=== PATIENT | female | born 1985 | race Hispanic/Latino ===

== ENCOUNTER 2017-12-05 15:05 | Emergency (ER) | payer SELFPAY | END 2017-12-05 15:43 | disposition home or self-care (01) | LOC: EDH 15:05 | DX: J11.1 Influenza due to unidentified influenza virus with other respiratory manifestations (principal) ==

== ENCOUNTER 2017-12-18 18:59 | Emergency (ER) | payer SELFPAY ==
[2017-12-18 19:34] LABS: BASOPHILS % (AUTO) 0.4 % (0.0-5.0); EOSINOPHILS % (AUTO) 0.4 % (0.0-8.0); HEMATOCRIT 41.7 % (36-48); LYMPHOCYTES % (AUTO) 9.1 % (21.0-51.0); MEAN CORPUSCULAR HEMOGLOBIN 27.7 pg (27.0-33.0); MEAN CORPUSCULAR VOLUME 83.8 fL (79-99); MONOCYTES % (AUTO) 3.9 % (3.0-13.0); NEUTROPHILS % (AUTO) 86.2 % (40.0-77.0); PLATELET COUNT (AUTO) 327 K/uL (130-400); RED BLOOD CELL COUNT(AUTO) 4.98 MIL/uL (4.00-5.50); RED CELL DISTRIBUTION WIDTH 14.2 % (11.0-15.5); WHITE BLOOD COUNT (AUTO) 15.7 K/uL (4.8-10.8)
[2017-12-18] MEDS ORDERED: SODIUM CHLORIDE 0.9% 1000ML 1,000 ML IV ONE (19:41)
[2017-12-18] MEDS ORDERED: ONDANSETRON HCL 4 MG/2 ML VIAL ONE ×2 (19:41→21:45)
[2017-12-18 19:42] LABS: CREATININE 0.6 mg/dL (0.5-1.5)
[2017-12-18 19:44] LABS: RAPID GROUP A STREP NEGATIVE (NEGATIVE)
[2017-12-18 20:09] LABS: APPEARANCE,URINE Clear (CLEAR); BILIRUBIN,URINE Negative (NEGATIVE); COLOR,URINE Yellow (YELLOW); GLUCOSE, URINE (UA) Negative (NEGATIVE); KETONES,URINE Trace mg/dL (NEGATIVE); LEUKOCYTE ESTERASE ,URINE Negative (NEGATIVE); NITRATE,URINE Negative (NEGATIVE); OCCULT BLOOD,URINE Moderate (NEGATIVE); PH,URINE 6.5 (5.0-8.0); PROTEIN,URINE Negative (NEGATIVE)
[2017-12-18 20:11] LABS: HCG,QUAL RESULT NEGATIVE (NEGATIVE)
[2017-12-18 20:19] LABS: WBC,URINE 0-1 /HPF (0-1)
[2017-12-18 20:20] LABS: BACTERIA,URINE Few /HPF (None Seen); SQUAMOUS EPITHELIAL CELL,UR Rare /LPF (0-2)
[2017-12-18] MEDS ORDERED: CEFTRIAXONE SODIUM 1 GM ONE (21:01)
[2017-12-18] MEDS ORDERED: BENZONATATE 100 MG CAPSULE PO ONE (21:01)
== END 2017-12-18 22:07 | disposition home or self-care (01) ==
LOC: EDH 18:59
DX: J20.9 Acute bronchitis, unspecified (principal); R11.2 Nausea with vomiting, unspecified
CPT/HCPCS: 36415; 71045; 80048; 81001; 81025; 85025; 87804 ×2; 87880; 96361; 96374; 96375; 96376; 99285; J0696; J2405 ×2; J7030

== ENCOUNTER 2019-01-05 08:01 | Emergency (ER) | payer SELFPAY ==
[2019-01-05 09:02] LABS: CREATININE 0.7 mg/dL (0.5-1.5); POTASSIUM 4.5 mmol/L (3.5-5.1)
[2019-01-05 09:07] LABS: ALBUMIN 3.6 g/dL (3.5-5.0); BILIRUBIN,TOTAL 0.3 mg/dL (0.2-1.0); TOTAL PROTEIN, SERUM 7.5 g/dL (6.0-8.3)
[2019-01-05 09:09] LABS: RAPID GROUP A STREP NEGATIVE (NEGATIVE)
[2019-01-05 09:19] LABS: APPEARANCE,URINE Clear (CLEAR); BILIRUBIN,URINE Negative (NEGATIVE); COLOR,URINE Yellow (YELLOW); GLUCOSE, URINE (UA) Negative (NEGATIVE); KETONES,URINE Negative (NEGATIVE); LEUKOCYTE ESTERASE ,URINE Negative (NEGATIVE); NITRATE,URINE Negative (NEGATIVE); OCCULT BLOOD,URINE Negative (NEGATIVE); PH,URINE 5.5 (5.0-8.0); PROTEIN,URINE Negative (NEGATIVE); UROBILINOGEN,URINE 0.2 mg/dL (0.2-1.0)
[2019-01-05 09:20] LABS: HEMATOCRIT 45.1 % (36-48); MEAN CORPUSCULAR HEMOGLOBIN 27.7 pg (27.0-33.0); MEAN CORPUSCULAR HGB CONC 32.3 g/dL (32.0-36.0); MEAN CORPUSCULAR VOLUME 85.8 fL (79-99); PLATELET COUNT (AUTO) 239 K/uL (130-400); RED BLOOD CELL COUNT(AUTO) 5.26 MIL/uL (4.00-5.50); RED CELL DISTRIBUTION WIDTH 13.8 % (11.0-15.5); WHITE BLOOD COUNT (AUTO) 20.8 K/uL (4.8-10.8)
[2019-01-05 09:26] LABS: HCG,QUAL RESULT NEGATIVE (NEGATIVE)
[2019-01-05] MEDS ORDERED: CEFTRIAXONE SODIUM 1 GM ONE (09:53)
[2019-01-05] MEDS ORDERED: METHYLPREDNISOLONE SOD SUCC 125MG/2ML VIAL ONE (09:53)
[2019-01-05] MEDS ORDERED: LIDOCAINE HCL-MPF 1% 2ML VIAL ONE (09:53)
[2019-01-05 09:58] LABS: BAND NEUTROPHILS % (MANUAL) 5 % (0-2); LYMPHOCYTES % (MANUAL) 8 % (22-44); MAN.DIFF COMMENT-IMPRESSION MANUAL DIFFERENTIAL; MONOCYTES % (MANUAL) 4 % (2-9); SEGMENTED NEUTROPHILS % 83 % (40-70)
[2019-01-05 09:59] LABS: PLATELET MORPHOLOGY COMMENT ADEQUATE
[2019-01-05] MEDS ORDERED: IPRATROPIUM/ALBUTEROL SULFATE 3 ML SOLUTION IH ONE (10:13)
== END 2019-01-05 12:06 | disposition home or self-care (01) ==
LOC: EDH 08:01
DX: J11.00 Influenza due to unidentified influenza virus with unspecified type of pneumonia (principal)
CPT/HCPCS: 36415; 71046; 80053; 81003; 81025; 85025; 87804 ×2; 87880; 94640; 96372 ×2; 99284; J0696; J2930; J3490

== ENCOUNTER 2020-11-17 10:15 | Emergency (ER) | payer OTHER, SELFPAY ==
[2020-11-17 11:13] LABS: CARBON DIOXIDE 28 mmol/L (21-32); CHLORIDE 97 mmol/L (101-111); CREATININE 0.6 mg/dL (0.5-1.5); GLOMERULAR FILTR. RATE CALC 120 mL/min (>60); GLUCOSE,RANDOM 386 mg/dL (70-105); POTASSIUM 4.9 mmol/L (3.5-5.1); SODIUM SERUM 135 mmol/L (136-145); UREA NITROGEN, BLOOD 9 mg/dL (7-18)
[2020-11-17 11:15] LABS: BASOPHILS % (AUTO) 0.2 % (0.0-5.0); EOSINOPHILS % (AUTO) 2.3 % (0.0-8.0); HEMATOCRIT 46.3 % (36-48); LYMPHOCYTES % (AUTO) 19.3 % (21.0-51.0); MEAN CORPUSCULAR HEMOGLOBIN 27.3 pg (27.0-33.0); MEAN CORPUSCULAR HGB CONC 32.2 g/dL (32.0-36.0); MONOCYTES % (AUTO) 5.7 % (3.0-13.0); NEUTROPHILS % (AUTO) 71.8 % (40.0-77.0); PLATELET COUNT (AUTO) 235 K/uL (130-400); RED BLOOD CELL COUNT(AUTO) 5.45 MIL/uL (4.00-5.50); RED CELL DISTRIBUTION WIDTH 13.4 % (11.0-15.5); WHITE BLOOD COUNT (AUTO) 6.1 K/uL (4.8-10.8)
[2020-11-17 11:30] LABS: ALANINE AMINOTRANSFERASE 45 U/L (12-78); ALBUMIN 3.3 g/dL (3.5-5.0); ASPARTATE AMINOTRANSFERASE 38 U/L (10-37); BILIRUBIN,TOTAL 0.4 mg/dL (0.2-1.0); CREATINE KINASE, TOTAL 106 U/L (21-232); LACTATE DEHYDROGENASE 344 U/L (81-234); MYOGLOBIN 20 ng/mL (10-92); TROPONIN I < 0.04 ng/mL (0.00-0.06)
[2020-11-17 11:32] LABS: INR 1.02 (0.85-1.15); PROTHROMBIN TIME 10.9 SEC (9.6-11.6)
[2020-11-17 11:34] LABS: PARTIAL THROMBOPLASTIN TIME 23.8 SEC (26.3-35.5)
[2020-11-17 12:18] LABS: ERYTHROCYTE SEDIMENTATION RATE 5 MM/HR (0-20)
== END 2020-11-17 13:59 | disposition home or self-care (01) ==
LOC: EDH 10:15
DX: U07.1 COVID-19 (principal); J12.82 Pneumonia due to coronavirus disease 2019; E11.65 Type 2 diabetes mellitus with hyperglycemia; I10 Essential (primary) hypertension; E66.01 Morbid (severe) obesity due to excess calories; Z98.890 Other specified postprocedural states; Z68.44 Body mass index [BMI] 60.0-69.9, adult
CPT/HCPCS: 36415; 71045; 80053; 82550; 82728; 83615; 83874; 84484; 85025; 85378; 85610; 85651; 85730; 86140; 86900; 86901; 87040; 93005

== ENCOUNTER 2021-01-06 13:27 | Emergency (ER) | payer OTHER ==
[2021-01-06] MEDS ORDERED: HYDROCODONE/ACETAMINOPHEN 5/325 MG TAB ONE (14:23)
[2021-01-06] MEDS ORDERED: KETOROLAC TROMETHAMINE 30MG/ML ONE (14:23)
[2021-01-06] MEDS ORDERED: PENICILLIN G BENZATHINE LA 1.2 MILUNITS/2 ML SYG ONE (14:25)
== END 2021-01-06 14:53 | disposition home or self-care (01) ==
LOC: EDH 13:27
DX: K04.7 Periapical abscess without sinus (principal); K08.89 Other specified disorders of teeth and supporting structures; E11.9 Type 2 diabetes mellitus without complications; I10 Essential (primary) hypertension
CPT/HCPCS: 96372 ×2; 99284; J0561; J1885

== ENCOUNTER 2021-02-11 11:45 | Emergency (ER) | payer MEDICAID ==
[2021-02-11] MEDS ORDERED: KETOROLAC TROMETHAMINE 30MG/ML ONE (12:53)
[2021-02-11] MEDS ORDERED: HYDROCODONE/ACETAMINOPHEN 5/325 MG TAB ONE (12:53)
== END 2021-02-11 13:12 | disposition home or self-care (01) ==
LOC: EDH 11:45
DX: K03.81 Cracked tooth (principal); K04.7 Periapical abscess without sinus; E11.9 Type 2 diabetes mellitus without complications; I10 Essential (primary) hypertension; Z98.890 Other specified postprocedural states
CPT/HCPCS: 87486; 87797; 96372; 99283; J1885

== ENCOUNTER 2021-02-28 22:06 | Emergency (ER) | payer MEDICAID ==
[2021-02-28] MEDS ORDERED: AMOXICILLIN/POTASSIUM CLAV 875-125 TABLET PO ONE (22:49)
== END 2021-02-28 23:10 | disposition home or self-care (01) ==
LOC: EDH 22:06
DX: G89.18 Other acute postprocedural pain (principal); K08.89 Other specified disorders of teeth and supporting structures; I10 Essential (primary) hypertension; E11.9 Type 2 diabetes mellitus without complications; Z98.890 Other specified postprocedural states; Z98.818 Other dental procedure status

== ENCOUNTER 2022-02-22 19:09 | Emergency (ER) | payer MEDICAID ==
[~2022-02-22] VITALS: Ht 157.5 cm; Wt 147.4 kg
[2022-02-22 20:32] LABS: BASOPHILS % (AUTO) 0.2 % (0.0-5.0); EOSINOPHILS % (AUTO) 0.6 % (0.0-8.0); HEMATOCRIT 46.2 % (36-48); MEAN CORPUSCULAR HEMOGLOBIN 27.5 pg (27.0-33.0); MEAN CORPUSCULAR HGB CONC 32.3 g/dL (32.0-36.0); MEAN CORPUSCULAR VOLUME 85.4 fL (79-99); NEUTROPHILS % (AUTO) 72.5 % (40.0-77.0); PLATELET COUNT (AUTO) 337 K/uL (130-400); RED BLOOD CELL COUNT(AUTO) 5.41 MIL/uL (4.00-5.50); RED CELL DISTRIBUTION WIDTH 13.2 % (11.0-15.5); WHITE BLOOD COUNT (AUTO) 12.1 K/uL (4.8-10.8)
[2022-02-22 20:46] LABS: CREATININE 0.7 mg/dL (0.5-1.5); POTASSIUM 3.9 mmol/L (3.5-5.1)
[2022-02-22 20:51] LABS: ALBUMIN 3.8 g/dL (3.5-5.0); BILIRUBIN,TOTAL 0.4 mg/dL (0.2-1.0); TOTAL PROTEIN, SERUM 8.1 g/dL (6.0-8.3)
[2022-02-22 21:19] LABS: APPEARANCE,URINE Cloudy (CLEAR); BILIRUBIN,URINE Negative (NEGATIVE); COLOR,URINE Yellow (YELLOW); GLUCOSE, URINE (UA) >=1000 mg/dL (NEGATIVE); KETONES,URINE Trace mg/dL (NEGATIVE); LEUKOCYTE ESTERASE ,URINE Trace (NEGATIVE); NITRATE,URINE Negative (NEGATIVE); OCCULT BLOOD,URINE Negative (NEGATIVE); PROTEIN,URINE Negative (NEGATIVE)
[2022-02-22 21:28] LABS: BACTERIA,URINE Moderate /HPF (None Seen); MUCUS,URINE Few LPF (None Seen); SQUAMOUS EPITHELIAL CELL,UR Few /HPF (0-2); YEAST,URINE BUDDING Few /HPF (None Seen)
[2022-02-22] MEDS ORDERED: CEFTRIAXONE 1G VIAL IVP ONE (22:30)
[2022-02-22] MEDS ORDERED: INSULIN HUMULIN R 100 UNIT/ML 3ML IV ONE (22:30)
[2022-02-22] MEDS ORDERED: 0.9%NACL 1000ML 1,000 ML IV SCH (22:30)
[2022-02-22] MEDS ORDERED: LACTULOSE 20 GM/30 ML UDCUP PO ONE (22:30)
[2022-02-22] MEDS ORDERED: MAGNESIUM CITRATE 296 ML SOLUTION PO ONE (22:30)
[2022-02-22] MEDS ORDERED: PIOG30TA10 PO (23:11)
[2022-02-22] MEDS ORDERED: CEPH500B PO (23:11)
[2022-02-22] MEDS ORDERED: METF-444 PO (23:11)
[2022-02-22] MEDS ORDERED: LACT10PA5 PO (23:11)
[2022-02-22] MEDS ORDERED: ONDANSETRON 4MG INJ ONE (23:35)
[2022-02-23] VITALS: BP 152/82
[2022-02-23] MEDS ORDERED: ONDANSETRON 4MG INJ IVP ONE
== END 2022-02-23 00:17 | disposition home or self-care (01) ==
LOC: EDH 19:09
DX: N39.0 Urinary tract infection, site not specified (principal); K57.30 Diverticulosis of large intestine without perforation or abscess without bleeding; E11.9 Type 2 diabetes mellitus without complications; K59.00 Constipation, unspecified; E66.9 Obesity, unspecified; Z68.43 Body mass index [BMI] 50.0-59.9, adult; Z98.890 Other specified postprocedural states
CPT/HCPCS: 36415; 74176; 80053; 81001; 82948 ×2; 83605; 84484; 85025; 87088; 96361; 96374; 96375; 99284; J0696; J1815; J2405; J7030

== ENCOUNTER 2022-05-22 18:33 | Emergency (ER) | payer MEDICAID ==
[~2022-05-22] VITALS: Ht 157.5 cm; Wt 149.7 kg
[~2022-05-22 18:33] MED LIST: CEPH500B PO; LACT10PA5 PO; METF-444 PO; PIOG30TA10 PO
[2022-05-22] MEDS ORDERED: D-ME1POW16 PO (20:26)
[2022-05-22 20:57] VITALS: BP 129/88
== END 2022-05-22 21:02 | disposition home or self-care (01) ==
LOC: EDH 18:33
DX: J06.9 Acute upper respiratory infection, unspecified (principal); E66.01 Morbid (severe) obesity due to excess calories; Z68.44 Body mass index [BMI] 60.0-69.9, adult; Z20.822 Contact with and (suspected) exposure to COVID-19; E11.9 Type 2 diabetes mellitus without complications; Z79.899 Other long term (current) drug therapy; Z79.84 Long term (current) use of oral hypoglycemic drugs; Z98.890 Other specified postprocedural states
CPT/HCPCS: 99283; 87635; 87804 ×2; C9803

== ENCOUNTER 2023-12-07 15:47 | Emergency (ER) | payer MEDICAID, OTHER ==
[~2023-12-07] VITALS: Ht 157.5 cm; Wt 132.4 kg
[~2023-12-07 15:47] MED LIST changes: +D-ME1POW16 PO; +SITA50TA PO
[2023-12-07 20:57] LABS: BASOPHILS # (AUTO) 0.03 K/uL (0.00-0.20); BASOPHILS % (AUTO) 0.2 % (0.0-5.0); EOSINOPHILS # (AUTO) 0.14 K/uL (0.00-0.70); HEMATOCRIT 46.6 % (36-48); IMMATURE GRANULOCYTE ABSOLUTE 0.07 K/uL (0-1); LYMPHOCYTES # (AUTO) 2.5 K/uL (1.0-4.8); MEAN CORPUSCULAR HGB CONC 32.6 g/dL (32.0-36.0); MEAN CORPUSCULAR VOLUME 82.9 fL (79-99); MONOCYTES # (AUTO) 0.5 K/uL (0.1-1.0); MONOCYTES % (AUTO) 3.4 % (3.0-13.0); NEUTROPHILS # (AUTO) 10.5 K/uL (1.8-7.7); NEUTROPHILS % (AUTO) 76.9 % (40.0-77.0); PLATELET COUNT (AUTO) 385 K/uL (130-400); RED BLOOD CELL COUNT(AUTO) 5.62 MIL/uL (4.00-5.50); RED CELL DISTRIBUTION WIDTH 13.3 % (11.0-15.5); WHITE BLOOD COUNT (AUTO) 13.6 K/uL (4.8-10.8)
[2023-12-07 21:11] LABS: CREATININE 0.6 mg/dL (0.5-1.5); POTASSIUM 3.7 mmol/L (3.5-5.1)
[2023-12-07 21:15] LABS: ALBUMIN 3.4 g/dL (3.5-5.0); BILIRUBIN,TOTAL 0.5 mg/dL (0.2-1.0); TOTAL PROTEIN, SERUM 7.6 g/dL (6.0-8.3)
[2023-12-07 21:20] LABS: APPEARANCE,URINE CLOUDY (CLEAR); BILIRUBIN,URINE NEGATIVE (NEGATIVE); COLOR,URINE YELLOW (YELLOW); GLUCOSE, URINE (UA) >=1000 mg/dL (NEGATIVE); KETONES,URINE 5 mg/dL (NEGATIVE); LEUKOCYTE ESTERASE ,URINE 250 Leu/uL (NEGATIVE); NITRATE,URINE NEGATIVE (NEGATIVE); OCCULT BLOOD,URINE NEGATIVE (NEGATIVE); PH,URINE 5.5 (5.0-8.0); PROTEIN,URINE NEGATIVE (NEGATIVE); UROBILINOGEN,URINE 3 mg/dL (0.2-1.0)
[2023-12-07 21:26] LABS: ADD UA MICROSCOPIC YES
[2023-12-07 21:42] LABS: BACTERIA,URINE FEW /HPF (None Seen); MUCUS,URINE RARE LPF (None Seen); RBC,URINE 26-50 /HPF (0-1); SQUAMOUS EPITHELIAL CELL,UR MANY /HPF (0-2); YEAST,URINE BUDDING MANY /HPF (None Seen)
[2023-12-07] MEDS ORDERED: CEPH500B PO (22:14)
[2023-12-07] MEDS: FLUCONAZOLE 100 MG TAB PO SCH (23:05)
[2023-12-07 23:08] VITALS: BP 142/83; PULSE 82; RESP 18; O2SAT 98
== END 2023-12-07 23:15 | disposition home or self-care (01) ==
LOC: EDH 15:47
DX: B37.31 Acute candidiasis of vulva and vagina (principal); N39.0 Urinary tract infection, site not specified; E11.9 Type 2 diabetes mellitus without complications; Z79.84 Long term (current) use of oral hypoglycemic drugs; Z79.899 Other long term (current) drug therapy; Z98.890 Other specified postprocedural states
CPT/HCPCS: 36415; 80053; 81001; 85025; 87088